=== PATIENT | female | born 2000 | race Caucasian/White ===

== ENCOUNTER 2022-06-30 17:34 | Emergency (ER) | payer OTHER, SELFPAY ==
[2022-06-30 18:30] LABS: Bilirubin Negative (Negative); Blood, Urine Negative (Negative); Clarity Clear (Clear); Glucose, Urine (Dipstick) Negative (Negative); Ketone, Urine Negative (Negative); Leukocyte Trace (Negative); Nitrite Negative (Negative); Protein, Urine (Dipstick) Negative (Neg-Trace); Urobilinogen 0.2 mg/dL (Less than 2)
[2022-06-30 18:34] LABS: Pregnancy Test - Urine (BHCG) Negative (Negative); Pregu Control Background? CLEAR/WHITE (CLR/WHITE); Pregu Control Bar Appear? YES (CONTROL BAR)
[2022-06-30 18:38] LABS: Bacteria/HPF 1+ HPF (None Seen); RBC/HPF None Seen HPF (0-3); Squamous Epithelial 0-3 HPF (0-3); WBC/HPF 0-3 HPF (0-3)
[2022-06-30] MEDS ORDERED: Ibuprofen 200 MG TAB ONE (18:52)
== END 2022-06-30 19:04 | disposition home or self-care (01) ==
LOC: BURERS 17:34
DX: S29.011A Strain of muscle and tendon of front wall of thorax, initial encounter (principal); S16.1XXA Strain of muscle, fascia and tendon at neck level, initial encounter; V49.3XXA Car occupant (driver) (passenger) injured in unspecified nontraffic accident, initial encounter
CPT/HCPCS: 71045; 81003; 81015; 81025